=== PATIENT | male | born 1995 | race Hispanic/Latino ===

== ENCOUNTER 2022-08-01 22:38 | Emergency (ER) | payer BC, MEDICAID ==
[2022-08-01] MEDS ORDERED: predniSONE 20 MG TAB ONE (23:37)
== END 2022-08-01 23:48 | disposition home or self-care (01) ==
LOC: MADERS 22:38
DX: L23.7 Allergic contact dermatitis due to plants, except food (principal); F17.200 Nicotine dependence, unspecified, uncomplicated
CPT/HCPCS: 99282; J7512